=== PATIENT | male | born 1975 | race Caucasian/White ===

== ENCOUNTER 2017-11-24 20:52 | Emergency (ER) | payer SELFPAY ==
[~2017-11-24] VITALS: Ht 175.3 cm; Wt 96.3 kg
[2017-11-24 21:15] VITALS: Ht 175.3 cm; Wt 96.3 kg
== END 2017-11-25 02:22 | disposition left against medical advice (07) ==
LOC: FTE 20:52
DX: Z53.21 Procedure and treatment not carried out due to patient leaving prior to being seen by health care provider (principal)